=== PATIENT | female | born 1950 | race African-American/Black ===

== ENCOUNTER 2024-02-23 17:41 | Inpatient (IN) | payer OTHER ==
[~2024-02-23] VITALS: Ht 160 cm; Wt 57.2 kg
[2024-02-23] MEDS: LEVETIRACETAM 500MG PREMIX 100 ML IV ONE (18:36)
[2024-02-23 18:45] LABS: BASOPHILS % 0.2 % (0.0-2.0); CHLORIDE 108 mEq/L (98-107); HEMATOCRIT. 41.6 % (36.0-48.0); HEMOGLOBIN. 14.1 g/dL (12.0-16.0); LYMPHOCYTES % 12.4 % (20.0-50.0); MEAN CORPUSCULAR HEMOGLOBIN 31.3 pg (28.0-32.0); MEAN CORPUSCULAR HGB CONC 33.8 g/dL (31.0-37.0); MEAN CORPUSCULAR VOLUME 92.7 fL (81.0-99.0); MEAN PLATELET VOLUME 10.2 fl (7.4-10.4); NEUTROPHILS % 78.4 % (40.0-76.0); PLATELET 187 x1000/uL (130-400); POTASSIUM 3.9 mEq/L (3.5-5.1); RED BLOOD CELL COUNT 4.49 mill/uL (4.2-5.4); RED CELL DISTRIBUTION WIDTH 15.2 % (11.6-14.6); SODIUM 142 mEq/L (136-145); WHITE BLOOD COUNT 6.5 x1000/uL (4.5-11.0)
[2024-02-23 18:46] LABS: CARBON DIOXIDE 29 mEq/L (21-32)
[2024-02-23 18:51] LABS: CREATININE 0.7 mg/dL (0.6-1.0); GLUCOSE 96 mg/dL (70-105); UREA NITROGEN BLOOD 17 mg/dL (9-23)
[2024-02-23 18:52] LABS: INR 1.3; PROTHROMBIN TIME 13.9 sec (9.6-11.0)
[2024-02-23] MEDS ORDERED: DOCUSATE SODIUM 100MG CAPSULE PO PRN (20:30)
[2024-02-23] MEDS ORDERED: ONDANSETRON HCL 4MG/2ML INJ IV PRN (20:30)
[2024-02-23] MEDS ORDERED: DEXT 5%/0.45% NACL 1000ML 1,000 ML IV SCH (20:30)
[2024-02-23] MEDS ORDERED: ACETAMINOPHEN 325MG TABLET PO PRN ×2 (20:30)
[2024-02-23] MEDS ORDERED: GUAIFENESIN 200MG/10ML SUGAR FREE UDC PO PRN (20:30)
[2024-02-23] MEDS ORDERED: LEVETIRACETAM 500MG in NACL 100ML PREMIX IV SCH (21:00)
[2024-02-23] MEDS ORDERED: IPRATROPIUM/ALBUTEROL 0.5-3(2.5)MG/3ML NEB HHN PRN (21:00)
[2024-02-23] MEDS: DEXT 5%/0.9% NACL 1,000 ML IV SCH (21:37)
[2024-02-23] MEDS: ENOXAPARIN 80MG/0.8ML SYR SUBCUT SCH (21:37)
[2024-02-23] MEDS: LEVETIRACETAM 500MG PREMIX 100 ML IV SCH (21:37)
[2024-02-23 23:29] LABS: CREATINE KINASE 93 IU/L (34-145); TROPONIN I HIGH SENSITIVITY 5 ng/L (3.0-34)
[2024-02-24 06:15] LABS: HEMATOCRIT 39.9 % (36.0-48.0); HEMOGLOBIN 13.6 g/dL (12.0-16.0); MEAN CORPUSCULAR HEMOGLOBIN 31.4 pg (28.0-32.0); MEAN CORPUSCULAR HGB CONC 34.2 g/dL (31.0-37.0); PLATELET 176 x1000/uL (130-400); RED BLOOD CELL COUNT 4.33 mill/uL (4.2-5.4); RED CELL DISTRIBUTION WIDTH 14.9 % (11.6-14.6); WHITE BLOOD COUNT 9.7 x1000/uL (4.5-11.0)
[2024-02-24 06:23] LABS: CHLORIDE 111 mEq/L (98-107); SODIUM 144 mEq/L (136-145)
[2024-02-24 06:24] LABS: CALCIUM 10.2 mg/dL (8.7-10.4); CARBON DIOXIDE 27 mEq/L (21-32)
[2024-02-24 06:29] LABS: AMMONIA < 17 uMol/L (<32); CREATININE 0.7 mg/dL (0.6-1.0); GLUCOSE 125 mg/dL (70-105); TROPONIN I HIGH SENSITIVITY 5 ng/L (3.0-34); UREA NITROGEN BLOOD 14 mg/dL (9-23)
[2024-02-24 06:31] LABS: CREATINE KINASE 61 IU/L (34-145)
[2024-02-24] MEDS: PIPERACILLIN/TAZO 3.375G/50ML 50 ML IV NR ×2 (08:33→16:50)
[2024-02-24] MEDS: AMLODIPINE 5MG TABLET PO SCH (09:00)
[2024-02-24] MEDS: VANCOMYCIN 1GM PMX (XELLIA) 200 ML IV NR (09:27)
[2024-02-24 09:52] LABS: BG BASE EXCESS -0.5 mmol/L (-2.0-3.0); BG CARBOXYHEMOGLOBIN 0.2 % (0.5-1.5); BG FRACTION INSPIRED OXYGEN 28; BG HCO3 ACT 25.1 mmol/L (21.0-28.0); BG METHEMOGLOBIN 0.3 % (0.5-1.5); BG OXYHEMOGLOBIN 98.5 % (94.0-98.0); BG PCO2 44.8 mmHg (32.0-45.0); BG PH 7.367 (7.350-7.450); BG PO2 135.9 mmHg (83.0-108.0); BG SAMPLE SITE RIGHT RADIAL; BG TOTAL HEMOGLOBIN 14.6 g/dL (12.0-16.0); BG VENT MODE NASAL CANNULA
[2024-02-24 18:00] VITALS: BP 147/85; PULSE 93; PULSE 94; RESP 18; TEMP 36.33624; TEMP 36.3624; O2SAT 94
[2024-02-24 20:00] VITALS: BP 157/80; PULSE 89; RESP 20; TEMP 36.55848; O2SAT 100
[2024-02-24] MEDS: ENOXAPARIN 60MG/0.6ML SYR SUBCUT SCH (21:46)
[2024-02-25] VITALS: BP 166/82; PULSE 90; RESP 20; TEMP 36.6696; O2SAT 99
[2024-02-25 04:00] VITALS: BP 162/85; PULSE 89; RESP 20; TEMP 36.61404; O2SAT 99
[2024-02-25 08:00] VITALS: BP 136/76; PULSE 77; RESP 19; TEMP 36.22512; O2SAT 100
[2024-02-25 12:00] VITALS: BP 154/76; PULSE 81; RESP 20; TEMP 36.114; O2SAT 99
[2024-02-25 16:00] VITALS: BP 143/64; PULSE 75; RESP 19; TEMP 36.22512; O2SAT 98
[2024-02-25 18:59] VITALS: BP 143/64; PULSE 75; TEMP 97.3; O2SAT 98
== END 2024-02-25 20:22 | disposition short-term general hospital (02) | DRG 871 ==
LOC: ER 17:41 → EDBEDREQTM 19:54 → EDBEDREQ 19:54 → 5WST 02-24 09:59 → 7EST 02-24 17:37
PROVIDERS: ADMIT Internal Medicine; ATTEND Internal Medicine
DX: A41.9 Sepsis, unspecified organism (principal); G93.41 Metabolic encephalopathy; J18.9 Pneumonia, unspecified organism; J44.0 Chronic obstructive pulmonary disease with (acute) lower respiratory infection; E83.52 Hypercalcemia; G35 Multiple sclerosis; G40.A09 Absence epileptic syndrome, not intractable, without status epilepticus; G83.14 Monoplegia of lower limb affecting left nondominant side; G93.89 Other specified disorders of brain; I10 Essential (primary) hypertension; Z79.01 Long term (current) use of anticoagulants; Z79.899 Other long term (current) drug therapy; Z86.711 Personal history of pulmonary embolism; Z86.718 Personal history of other venous thrombosis and embolism; Z87.01 Personal history of pneumonia (recurrent); Z87.440 Personal history of urinary (tract) infections; Z99.3 Dependence on wheelchair
CPT/HCPCS: 36415; 36600; 71045; 80048; 82140; 82375; 82550; 82805; 82962; 84145; 84484; 85025; 85027; 93970; 99285; J1650; J1953; J2543; J3370; J7042